=== PATIENT | female | born 1950 | race Caucasian/White ===

== ENCOUNTER 2018-10-11 07:50 | Outpatient (CLI) | payer MEDICARE ==
[2018-10-11 12:45] LABS: Bilirubin Negative (Negative); Blood, Urine Negative (Negative); Clarity CLOUDY (Clear); Glucose, Urine (Dipstick) Negative (Negative); Hemoglobin 13.2 g/dL (12.0-16.0); Leukocyte Large (Negative); Mean Corpuscular HGB CONC 34.3 g/dL (32.0-36.0); Mean Corpuscular Hemoglobin 30.9 pg (27.0-31.0); Mean Corpuscular Volume 90.1 fL (78.0-98.0); Nitrite Negative (Negative); Platelet Count 258 thou/uL (130-400); Protein, Urine (Dipstick) Negative (Neg-Trace); Red Blood Cell (RBC) Count 4.27 mill/uL (4.20-5.40); Specific Gravity, Urine 1.017 (1.002-1.036); Urobilinogen 0.2 mg/dL (0.2-1.0); White Blood Cell (WBC) Count 11.5 thou/uL (4.8-10.8)
[2018-10-11 12:49] LABS: Bacteria/HPF None Seen HPF (None Seen); Hyaline Casts/LPF 0-3 HYALINE CAST LPF (0-3 Hyaline); Pathc Cast-AUWi Flag 0.14 (0-2.49); RBC/HPF 0-3 HPF (0-3); WBC/HPF 21-50 HPF (0-3)
[2018-10-11 12:50] LABS: INR-International Normal Ratio 1.1
[2018-10-11 13:04] LABS: Anion Gap 14 mmol/L (10-20); BUN (Urea Nitrogen) 24 mg/dL (9.8-20.1); Calc. Creatinine Clearance 0 mL/min (70-130); Calcium 9.5 mg/dL (7.8-10.44); Carbon Dioxide 22 mmol/L (23-31); Chloride 107 mmol/L (98-107); Estimated GFR-MDRD 38; Glucose 75 mg/dL (80-115); Potassium 4.4 mmol/L (3.5-5.1); Sodium 139 mmol/L (136-145)
--- NOTE | 2018-10-11 17:10 | EKG ---
Test Reason : Blood Pressure : / mmHG Vent. Rate : 085 BPM Atrial Rate : 085 BPM P-R Int : 134 ms QRS Dur : 088 ms QT Int : 356 ms P-R-T Axes : 047 053 067 degrees QTc Int : 423 ms Normal sinus rhythm Anterior infarct , age undetermined Abnormal ECG No previous ECGs available Confirmed by KHARI SANDERSON, DR. Marc ([id number]) on 10/11/2018 5:10:01 PM Referred By: IERO Confirmed By:DR. Monico LUCIA MD
== END 2018-10-11 07:51 | disposition home or self-care (01) ==
LOC: LABBT 07:50
PROVIDERS: ATTEND Orthopaedic Surgery
DX: Z01.818 Encounter for other preprocedural examination (principal); M17.12 Unilateral primary osteoarthritis, left knee
CPT/HCPCS: 80048; 81001; 85027; 85610; 87081; 93005; 93010

== ENCOUNTER 2018-10-16 09:32 | Outpatient (CLI) | payer MEDICARE | END 2018-10-16 09:33 | disposition home or self-care (01) | LOC: LABBT 09:32 | PROVIDERS: ATTEND Orthopaedic Surgery | DX: Z01.812 Encounter for preprocedural laboratory examination (principal); M17.12 Unilateral primary osteoarthritis, left knee | CPT/HCPCS: 86850; 86900; 86901 ==

== ENCOUNTER 2018-10-22 05:36 | Inpatient (IN) | payer MEDICARE ==
[2018-10-11 09:35] VITALS: BMI 33.6
[2018-10-22] MEDS ORDERED: Sodium Chloride 0.9% 100 ML ONE (05:53)
[2018-10-22] MEDS ORDERED: Tranexamic Acid 1,000 MG/10 ML VIAL ONE ×2 (05:53→09:32)
[2018-10-22] MEDS ORDERED: CEFAZOLIN 2 GM/50 ML BAG ONE (05:53)
[2018-10-22] MEDS ORDERED: Vancomycin HCl 1.5 GM in Sodium Chloride 0.9% 250 ML 300 ML IVPB ONE (06:00)
[2018-10-22] MEDS ORDERED: Midazolam HCl 2 mg/2 ml Vial ONE (06:29)
[2018-10-22] MEDS ORDERED: Lidocaine 1% (PF) 30 ML VIAL ONE (06:29)
[2018-10-22] MEDS ORDERED: Fentanyl 100 MCG/2 ML VIAL ONE ×3 (06:29→09:44)
[2018-10-22] MEDS ORDERED: Bupivacaine PF 0.5% 30 ML VIAL ONE (06:40)
[2018-10-22] MEDS ORDERED: Zolpidem Tartrate 5 MG TAB PO PRN ×2 (07:13→07:25)
[2018-10-22] MEDS ORDERED: Acetaminophen 325 MG TAB PO PRN (07:13)
[2018-10-22] MEDS ORDERED: diphenhydrAMINE 25 MG CAP PO PRN (07:13)
[2018-10-22] MEDS ORDERED: Promethazine HCl 25 MG/ML VIAL IM PRN ×3 (07:13→09:03)
[2018-10-22] MEDS ORDERED: Fentanyl 100 MCG/2 ML VIAL SLOW IVP PRN (07:13)
[2018-10-22] MEDS ORDERED: traMADol HCl 50 MG TAB PO PRN ×3 (07:13→07:25)
[2018-10-22] MEDS ORDERED: Ondansetron PF 4 MG/2 ML Vial IVP PRN ×2 (07:13→07:25)
[2018-10-22] MEDS ORDERED: HYDROcodone/Acetaminophen 10/325 mg Tablet PO PRN ×2 (07:13)
[2018-10-22] MEDS ORDERED: CEFAZOLIN/Water 2 GM/20 ML SYRINGE SLOW IVP SCH (07:15)
[2018-10-22] MEDS ORDERED: Tranexamic Acid 1,000 MG in Sodium Chloride 0.9% 100 ML IVPB SCH (07:15)
[2018-10-22] MEDS ORDERED: SUMAtriptan Succinate 50 MG TAB PO PRN (07:15)
[2018-10-22] MEDS ORDERED: Ropivacaine HCl/PF 250 ML in Premix Bag 1 BAG NERVE BLCK SCH (07:25)
[2018-10-22] MEDS ORDERED: HYDROcodone/Acetaminophen 5/325 mg Tablet PO PRN (07:25)
[2018-10-22] MEDS ORDERED: Dextroamphetamine/Amphetamine [Adderall Xr 30 Mg Capsule] PO SCH (09:00)
[2018-10-22] MEDS ORDERED: Aspirin 81 mg Enteric Coated Tablet PO SCH (09:00)
[2018-10-22] MEDS ORDERED: DEXMETHYLPHENIDATE HCL 20 MG PO SCH (09:00)
[2018-10-22] MEDS ORDERED: Promethazine HCl 25 MG/ML VIAL SLOW IVP PRN (09:03)
[2018-10-22] MEDS ORDERED: Ondansetron HCl/PF 4 MG/2 ML Vial IVP PRN (09:03)
--- NOTE | 2018-10-22 10:51 | OP ---
DATE OF PROCEDURE: 10/22/2018 PREOPERATIVE DIAGNOSIS: Left knee osteoarthrosis. POSTOPERATIVE DIAGNOSIS: Left knee osteoarthrosis. PROCEDURE PERFORMED: Left total knee replacement using [employer] pinless navigation. SHAREPOINT MANAGER: Manolo Carlisle PA-C. BLOOD LOSS: Minimal. COMPLICATIONS: None. ANESTHESIA: She had a preoperative block. She also had a general anesthetic. DISPOSITION: She went to recovery room in stable condition. IMPLANTS: Our implants to the left leg include Triathlon total knee system, femur size 4, cruciate retaining left femur. We used a size 4 primary tibial base plate, 4 x 9 mm CS X3 tibial bearing, and a 27 x 8 X3 symmetric patella. INDICATIONS: This is a 67-year-old female, who has had long-term arthritic pain in the knee. She has had her other knee replaced and has done well with this and at this time, she wished to have her left knee replaced. PROCEDURE IN DETAIL: After all appropriate consent forms were explained and signed, the patient was taken back to the operating room and at this time was given general anesthetic. Once the level of anesthesia was appropriate, a well-padded tourniquet was placed on the left leg, and the leg was then prepped and draped in standard surgical fashion. The limb was exsanguinated and tourniquet taken up to 300 mmHg. Midline incision was made with a 10 blade down through the skin and subcutaneous tissue. Bovie electrocautery was used to coagulate any brisk venous bleeding. A new blade was used to make a medial parapatellar arthrotomy. Small subperiosteal release was performed medially and excess fat pad was removed. The knee was flexed up to gain access to the femur. The femur was navigated and distal femoral resection was made. Epicondylar access was used to align our sizing jig and this was pinned in place. We sized our femur to be a 4. 4:1 cutting block was applied and pinned. Anterior and posterior chamfer cuts were then made. We navigated out our proximal tibia and made our proximal tibial resection. Spreaders were used to remove any posterior osteophytes off the back of the femur as well as remaining meniscal tissue. A long alignment kathy was then used to achieve correct rotation of our tibial baseplate and a size 4 primary was chosen. This was pinned in place. We trialed the polyethylene and a 4 x 9 mm CS X3 tibial bearing polyethylene gave us full extension and good stability throughout range of motion. Two towel clips and a saw were used to cut our patella. Three lug nuts were drilled and a 27 x 8 X3 symmetric patella was trialed which sat nicely in the trochlear groove. We then drilled our femur and punched our tibia. All components were removed. The knee was thoroughly irrigated and dried. Cement was mixed into the cement gun on the back table. Components were then placed. The knee was held out in full extension until the cement had dried. All excess bone cement was removed. Multiple #2 Vicryl stitches as well as a Quill were used to close our extensor mechanism. 0 Quill followed by a running Monoderm was then used to close the skin. Surgicel glue was then used on the skin. Once this had dried, soft tissue dressing was applied to the limb, tourniquet was let down, and the toes pinked up nicely. The patient was then awakened and taken to the recovery room in stable condition. All counts were correct at the end of the case. The patient did receive preoperative IV antibiotics. The patient was injected with Exparel for postoperative pain relief. Job ID: [id number]
[2018-10-22] MEDS: Sodium Chloride 0.9% 1,000 ML IV SCH ×3 (11:00→21:47)
[2018-10-22] MEDS: Metoprolol Tartrate 100 MG TAB PO SCH ×2 (11:03→21:48)
[2018-10-22] MEDS: Cyanocobalamin (Vitamin B-12) 1,000 MCG TAB PO SCH (11:03)
[2018-10-22] MEDS: Aspirin 81 mg Enteric Coated Tablet PO SCH ×2 (11:03→21:48)
[2018-10-22] MEDS: Ubidecarenone 50 MG CAP PO SCH (11:04)
[2018-10-22] MEDS: pyridOXINE 50 MG (B6) TAB PO SCH (11:04)
[2018-10-22] MEDS: Folic Acid 1 MG TAB PO SCH (11:06)
[2018-10-22] MEDS: Fentanyl 100 MCG/2 ML VIAL IV PRN (11:10)
[2018-10-22] MEDS: Topiramate 25 MG TAB PO SCH ×2 (11:14→21:48)
[2018-10-22] MEDS: Hydrochlorothiazide 25 MG TAB PO SCH (11:17)
[2018-10-22] MEDS: DULoxetine 60 MG CAP PO SCH ×2 (11:18→21:48)
[2018-10-22] MEDS: Digoxin 0.125 MG TAB PO SCH (11:18)
[2018-10-22] MEDS ORDERED: Calcium Carbonate 500 MG ChewTAB PO PRN (12:03)
[2018-10-22] MEDS ORDERED: hydrALAZINE 20 MG/ML VIAL SLOW IVP PRN (12:03)
[2018-10-22] MEDS ORDERED: Artificial Tear Sol 15 ML BOT EA EYE PRN (12:03)
[2018-10-22] MEDS ORDERED: Diabetic Tussin 200 MG/10 ML UDCUP PO PRN (12:03)
[2018-10-22] MEDS ORDERED: Sodium Chloride 0.65% Nasal 44 ML BOT EA NARE PRN (12:03)
[2018-10-22] MEDS ORDERED: Cepastat Lozenges 1 LOZ PO PRN (12:03)
[2018-10-22] MEDS ORDERED: Eucerin (Mineral Oil/Petrolatum,White) 30 gm Jar TOP PRN (12:03)
[2018-10-22] MEDS: HYDROcodone/Acetaminophen 5/325 mg Tablet PO PRN ×3 (13:07→21:57)
--- NOTE | 2018-10-22 13:18 | PDOC.PN ---
- Subjective Encounter Start Date: 10/22/18 Encounter Start Time: 12:15 -: old records requested/rev Patient seen and examined. No new complaints. pt is admitted for left TKR currently her pain is controlled denies any chest pain or dyspnea - Objective Resuscitation Status - Order Detail: 10/22/18 12:03 Resuscitation Status Routine Resuscitation Status: FULL: Full Resuscitation Vital Signs & Weight: Vital Signs (12 hours) Temp Pulse Resp BP Pulse Ox 10/22/18 11:55 96 10/22/18 11:18 84 10/22/18 10:30 98.1 F 84 18 139/79 96 Weight Weight 215 lb Additional Labs: old labs reviewed and she had normal CBC, BMP pre op EKG Reviewed by me: Yes (nsr) Phys Exam - Physical Examination Constitutional: NAD HEENT: PERRLA, moist MMs, sclera anicteric Neck: no JVD, supple Respiratory: no wheezing, no rales, no rhonchi, clear to auscultation bilateral Cardiovascular: RRR, no significant murmur, no rub Gastrointestinal: soft, non-tender, no distention, positive bowel sounds Musculoskeletal: no edema, pulses present left knee with dressing, nerve block in place, jonas+ Neurological: non-focal, normal sensation, moves all 4 limbs Lymphatic: no nodes Psychiatric: normal affect, A&O x 3 Skin: no rash, normal turgor Dx/Plan (1) Status post total left knee replacement Code(s): Z96.652 - PRESENCE OF LEFT ARTIFICIAL KNEE JOINT Status: Acute (2) Anxiety and depression Code(s): F41.9 - ANXIETY DISORDER, UNSPECIFIED; F32.9 - MAJOR DEPRESSIVE DISORDER, SINGLE EPISODE, UNSPECIFIED Status: Chronic (3) CKD (chronic kidney disease) stage 3, GFR 30-59 ml/min Code(s): N18.3 - CHRONIC KIDNEY DISEASE, STAGE 3 (MODERATE) Status: Chronic (4) Hypertension Code(s): I10 - ESSENTIAL (PRIMARY) HYPERTENSION Status: Chronic (5) Obesity (BMI 30.0-34.9) Code(s): E66.9 - OBESITY, UNSPECIFIED Status: Chronic (6) Osteoarthritis Code(s): M19.90 - UNSPECIFIED OSTEOARTHRITIS, UNSPECIFIED SITE Status: Chronic - Plan cont current plan of care, plan discussed w/ family, PT/OT * medication reviewed as below * symptomatic treatment * home medication reconciled * code status full code addressed * pepcid for GI prophylaxis. * continue aspirin for DVT prophylaxis per protocol * nerve block as per anesthesia * pain controlled * medically stable for now * discussed with family * will follow . Review of Systems - Review of Systems ENT: negative: Ear Pain, Ear Discharge, Nose Pain, Nose Discharge, Nose Congestion, Mouth Pain, Mouth Swelling, Throat Pain, Throat Swelling, Other Respiratory: negative: Cough, Dry, Shortness of Breath, Hemoptysis, SOB with Excertion, Pleuritic Pain, Sputum, Wheezing Cardiovascular: negative: chest pain, palpitations, orthopnea, paroxysmal nocturnal dyspnea, edema, light headedness, other Gastrointestinal: negative: Nausea, Vomiting, Abdominal Pain, Diarrhea, Constipation, Melena, Hematochezia, Other Genitourinary: negative: Dysuria, Frequency, Incontinence, Hematuria, Retention , Other Musculoskeletal: negative: Neck Pain, Shoulder Pain, Arm Pain, Back Pain, Hand Pain, Leg Pain, Foot Pain, Other - Medications/Allergies Allergies/Adverse Reactions: Allergies Allergy/AdvReac Type Severity Reaction Status Date / Time No Known Allergies Allergy Verified 10/11/18 09:35 Medications: Current Medications Acetaminophen (Tylenol) 650 mg PO Q4H PRN PRN Reason: Headache/Fever or Pain Hydrocodone Bitart/Acetaminophen ([place] 5/325) 1 tab PO Q4H PRN PRN Reason: Mild Pain (1-3) Hydrocodone Bitart/Acetaminophen ([place] 5/325) 2 tab PO Q4H PRN PRN Reason: For Moderate Pain 4-6 Last Admin: 10/22/18 13:07 Dose: 2 tab Artificial Tears (Tears Renewed 15ml Bottle) 2 drop EA EYE PRN PRN PRN Reason: Dry Eyes Aspirin (Ecotrin) 81 mg PO BID [facility] Last Admin: 10/22/18 11:03 Dose: Not Given Calcium Carbonate (Tums) 1,000 mg PO Q4H PRN PRN Reason: Heartburn or Indigestion Coenzyme Q10 (Coenzyme Q10) 400 mg PO DAILY [facility] Last Admin: 10/22/18 11:04 Dose: Not Given Cyanocobalamin (Vitamin B-12) 2,500 mcg PO DAILY [facility] Last Admin: 10/22/18 11:03 Dose: Not Given Digoxin (Lanoxin) 0.125 mg PO DAILY [facility] Last Admin: 10/22/18 11:18 Dose: Not Given Diphenhydramine HCl (Benadryl) 25 mg PO Q6H PRN PRN Reason: Itching Duloxetine HCl (Cymbalta) 60 mg PO BID [facility] Last Admin: 10/22/18 11:18 Dose: Not Given Famotidine (Pepcid) 20 mg PO DAILY [facility] Fentanyl (Sublimaze) 50 mcg IV Q1H PRN PRN Reason: BREAKTHRU PAIN Last Admin: 10/22/18 11:10 Dose: 50 mcg Ferrous Gluconate (Fergon) 324 mg PO BID[facility] Folic Acid (Folvite) 0.5 mg PO DAILY [facility] Last Admin: 10/22/18 11:06 Dose: Not Given Guaifenesin (Robitussin Sf) 200 mg PO Q4H PRN PRN Reason: Cough Hydralazine HCl (Apresoline) 10 mg SLOW IVP Q4H PRN PRN Reason: SBP > 180 and HR < 70 Hydrochlorothiazide (Hydrochlorothiazide) 25 mg PO DAILY [facility] Last Admin: 10/22/18 11:17 Dose: 25 mg Sodium Chloride (Normal Saline 0.9%) 1,000 mls @ 100 mls/hr IV .Q10H [facility] Last Admin: 10/22/18 11:00 Dose: Not Given Vancomycin HCl 1.5 gm/ Sodium (Chloride) 300 mls @ 200 mls/hr IVPB 1800 [facility] Stop: 10/22/18 19:29 Ropivacaine 250 ml/ Device 250 mls @ 10 mls/hr NERVE BLCK INF [facility] Cefazolin Sodium/Dextrose 2 gm (/ Device) 50 mls @ 100 mls/hr IVPB Q8HR [facility] Stop: 10/22/18 22:29 Iron/Minerals/Multivitamins (Theragran M) 1 tab PO DAILY [facility] Ketorolac Tromethamine (Toradol) 15 mg IVP Q6H PRN PRN Reason: Moderate Pain (4-6) Stop: 10/25/18 07:26 Meloxicam (Mobic) 15 mg PO DAILY [facility] Metoprolol Tartrate (Lopressor) 100 mg PO BID [facility] Last Admin: 10/22/18 11:03 Dose: Not Given Mineral Oil/White Petrolatum (Eucerin Cream) 0 gm TOP BIDPRN PRN PRN Reason: Dry Skin Ondansetron HCl (Zofran) 4 mg IVP Q6H PRN PRN Reason: Nausea/Vomiting Dexmethylphenidate Hcl [Focalin Xr] 20 Mg 0 each PO QAM [facility] Dextroamphetamine/Amphetamine [ Adderall Xr 30 Mg Capsule] 0 each PO DAILY [facility] Promethazine HCl (Phenergan) 12.5 mg IM Q4H PRN PRN Reason: Nausea/Vomiting Pyridoxine HCl (Vitamin B 6) 25 mg PO DAILY [facility] Last Admin: 10/22/18 11:04 Dose: Not Given Senna/Docusate Sodium (Senokot S) 2 tab PO BID [facility] Sodium Chloride (Flush - Normal Saline) 10 ml IVF PRN PRN PRN Reason: Saline Flush Sodium Chloride ([place] Nasal [place] 0.65%) 0 ml EA NARE QIDPRN PRN PRN Reason: Nasal Congestion Sumatriptan Succinate (Imitrex) 50 mg PO DAILY PRN PRN Reason: migraines Throat Lozenges (Cepastat Lozenges) 1 marnie PO Q2H PRN PRN Reason: Sore Throat Topiramate (Topamax) 25 mg PO BID [facility] Last Admin: 10/22/18 11:14 Dose: Not Given Tramadol HCl (Ultram) 50 mg PO Q6H PRN PRN Reason: Mild Pain (1-3) Tramadol HCl (Ultram) 100 mg PO Q6H PRN PRN Reason: Moderate Pain 4-6 Zolpidem Tartrate (Ambien) 5 mg PO HSPRN PRN PRN Reason: Insomnia
[2018-10-22] MEDS: CEFAZOLIN 2 GM/50 ML-DEXTROSE 2 GM in Premix Bag 1 BAG IVPB SCH ×2 (15:25→21:48)
[2018-10-22] MEDS ORDERED: Ropivacaine 0.2% HCl/PF (40 MG/20 ML VIAL) ONE (16:26)
[2018-10-22] MEDS ORDERED: Ropivacaine 0.5% HCl/PF (150 MG/30 ML VIAL) ONE (16:26)
[2018-10-22] MEDS ORDERED: Metoprolol Tartrate 5 MG/5 ML VIAL ONE (17:01)
[2018-10-22] MEDS ORDERED: PROPOFOL 200 MG/20 ML VIAL ONE (17:01)
[2018-10-22] MEDS ORDERED: Ondansetron PF 4 MG/2 ML Vial ONE (17:01)
[2018-10-22] MEDS ORDERED: Dexamethasone 20 MG/5 ML VIAL ONE (17:01)
[2018-10-22] MEDS ORDERED: Ketorolac Tromethamine 30 MG/ML VIAL ONE (17:01)
[2018-10-22] MEDS: Ketorolac Tromethamine 30 MG/ML VIAL IVP PRN (17:08)
[2018-10-22] MEDS ORDERED: Vancomycin HCl 1.5 GM in Sodium Chloride 0.9% 250 ML 300 ML IVPB SCH (18:00)
[2018-10-23] MEDS: Ketorolac Tromethamine 30 MG/ML VIAL IVP PRN ×2 (00:17→12:27)
[2018-10-23 05:26] LABS: Hemoglobin 9.6 g/dL (12.0-16.0); Mean Corpuscular HGB CONC 33.7 g/dL (32.0-36.0); Mean Corpuscular Hemoglobin 30.5 pg (27.0-31.0); Mean Corpuscular Volume 90.5 fL (78.0-98.0); Platelet Count 183 thou/uL (130-400); RBC Distribution Width 12.4 % (11.5-14.5); Red Blood Cell (RBC) Count 3.16 mill/uL (4.20-5.40); White Blood Cell (WBC) Count 11.6 thou/uL (4.8-10.8)
[2018-10-23] MEDS: HYDROcodone/Acetaminophen 5/325 mg Tablet PO PRN ×5 (05:46→23:36)
[2018-10-23] MEDS: Ferrous Gluconate 324 MG TAB PO SCH ×2 (08:52→17:24)
[2018-10-23] MEDS: Multivitamin W/ Minerals 1 TAB PO SCH (08:53)
[2018-10-23] MEDS: pyridOXINE 50 MG (B6) TAB PO SCH (08:53)
[2018-10-23] MEDS: Aspirin 81 mg Enteric Coated Tablet PO SCH ×2 (08:53→20:49)
[2018-10-23] MEDS: Senokot S 8.6-50 MG TAB PO SCH ×2 (08:53→20:49)
[2018-10-23] MEDS: Famotidine 20 MG TAB PO SCH (08:54)
[2018-10-23] MEDS: Metoprolol Tartrate 100 MG TAB PO SCH ×2 (08:55→20:49)
[2018-10-23] MEDS: Folic Acid 1 MG TAB PO SCH (08:55)
[2018-10-23] MEDS: DULoxetine 60 MG CAP PO SCH ×2 (08:56→20:48)
[2018-10-23] MEDS: Digoxin 0.125 MG TAB PO SCH (08:56)
[2018-10-23] MEDS: Hydrochlorothiazide 25 MG TAB PO SCH (08:57)
[2018-10-23] MEDS: Ubidecarenone 50 MG CAP PO SCH (09:09)
[2018-10-23] MEDS: Cyanocobalamin (Vitamin B-12) 1,000 MCG TAB PO SCH (09:09)
--- NOTE | 2018-10-23 09:46 | PDOC.PN ---
- Subjective Encounter Start Date: 10/23/18 Encounter Start Time: 07:50 pt is doing well, her pain is controlled, her jonas out Patient seen and examined. No new complaints. No overnight events - Objective Resuscitation Status - Order Detail: 10/22/18 12:03 Resuscitation Status Routine Resuscitation Status: FULL: Full Resuscitation MAR Reviewed: Yes Vital Signs & Weight: Vital Signs (12 hours) Temp Pulse Resp BP Pulse Ox 10/23/18 08:56 89 10/23/18 07:37 94 L 10/23/18 07:17 98.5 F 89 20 105/68 94 L 10/23/18 04:00 98.2 F 85 18 148/86 H 97 10/23/18 00:00 98.3 F 84 18 136/83 96 Weight Weight 215 lb I&O: 10/22/18 10/23/18 10/24/18 06:59 06:59 06:59 Intake Total 4080.5 Output Total 2400 Balance 1680.5 Result Diagrams: 10/23/18 05:03 Phys Exam - Physical Examination Constitutional: NAD HEENT: PERRLA, moist MMs, sclera anicteric Neck: no JVD, supple Respiratory: no wheezing, no rales, no rhonchi Cardiovascular: RRR, no significant murmur, no rub Gastrointestinal: soft, non-tender, no distention, positive bowel sounds Musculoskeletal: no edema, pulses present left knee with dressing, epidural in place Neurological: non-focal, normal sensation, moves all 4 limbs Lymphatic: no nodes Psychiatric: normal affect, A&O x 3 Skin: no rash, normal turgor Dx/Plan (1) Status post total left knee replacement Code(s): Z96.652 - PRESENCE OF LEFT ARTIFICIAL KNEE JOINT Status: Acute (2) Anxiety and depression Code(s): F41.9 - ANXIETY DISORDER, UNSPECIFIED; F32.9 - MAJOR DEPRESSIVE DISORDER, SINGLE EPISODE, UNSPECIFIED Status: Chronic (3) CKD (chronic kidney disease) stage 3, GFR 30-59 ml/min Code(s): N18.3 - CHRONIC KIDNEY DISEASE, STAGE 3 (MODERATE) Status: Chronic (4) Hypertension Code(s): I10 - ESSENTIAL (PRIMARY) HYPERTENSION Status: Chronic (5) Obesity (BMI 30.0-34.9) Code(s): E66.9 - OBESITY, UNSPECIFIED Status: Chronic (6) Osteoarthritis Code(s): M19.90 - UNSPECIFIED OSTEOARTHRITIS, UNSPECIFIED SITE Status: Chronic (7) Anemia, normocytic normochromic Code(s): D64.9 - ANEMIA, UNSPECIFIED Status: Acute - Plan cont current plan of care, plan discussed w/ family, PT/OT * medication reviewed as below * symptomatic treatment * pepcid for GI prophylaxis. * continue aspirin for DVT prophylaxis per protocol * nerve block as per anesthesia * pain controlled * medically stable for now * will follow. * discharge per primary team Review of Systems - Review of Systems ENT: negative: Ear Pain, Ear Discharge, Nose Pain, Nose Discharge, Nose Congestion, Mouth Pain, Mouth Swelling, Throat Pain, Throat Swelling, Other Respiratory: negative: Cough, Dry, Shortness of Breath, Hemoptysis, SOB with Excertion, Pleuritic Pain, Sputum, Wheezing Cardiovascular: negative: chest pain, palpitations, orthopnea, paroxysmal nocturnal dyspnea, edema, light headedness, other Gastrointestinal: negative: Nausea, Vomiting, Abdominal Pain, Diarrhea, Constipation, Melena, Hematochezia, Other Genitourinary: negative: Dysuria, Frequency, Incontinence, Hematuria, Retention , Other Musculoskeletal: negative: Neck Pain, Shoulder Pain, Arm Pain, Back Pain, Hand Pain, Leg Pain, Foot Pain, Other Skin: negative: Rash, Lesions, Ellis, Bruising, Other - Medications/Allergies Allergies/Adverse Reactions: Allergies Allergy/AdvReac Type Severity Reaction Status Date / Time No Known Allergies Allergy Verified 10/11/18 09:35 Medications: Current Medications Acetaminophen (Tylenol) 650 mg PO Q4H PRN PRN Reason: Headache/Fever or Pain Hydrocodone Bitart/Acetaminophen ([place] 5/325) 1 tab PO Q4H PRN PRN Reason: Mild Pain (1-3) Hydrocodone Bitart/Acetaminophen ([place] 5/325) 2 tab PO Q4H PRN PRN Reason: For Moderate Pain 4-6 Last Admin: 10/23/18 05:46 Dose: 2 tab Artificial Tears (Tears Renewed 15ml Bottle) 2 drop EA EYE PRN PRN PRN Reason: Dry Eyes Aspirin (Ecotrin) 81 mg PO BID [facility] Last Admin: 10/23/18 08:53 Dose: 81 mg Calcium Carbonate (Tums) 1,000 mg PO Q4H PRN PRN Reason: Heartburn or Indigestion Coenzyme Q10 (Coenzyme Q10) 400 mg PO DAILY [facility] Last Admin: 10/23/18 09:09 Dose: Not Given Cyanocobalamin (Vitamin B-12) 2,500 mcg PO DAILY [facility] Last Admin: 10/23/18 09:09 Dose: 2,500 mcg Digoxin (Lanoxin) 0.125 mg PO DAILY [facility] Last Admin: 10/23/18 08:56 Dose: 0.125 mg Diphenhydramine HCl (Benadryl) 25 mg PO Q6H PRN PRN Reason: Itching Duloxetine HCl (Cymbalta) 60 mg PO BID [facility] Last Admin: 10/23/18 08:56 Dose: 60 mg Famotidine (Pepcid) 20 mg PO DAILY [facility] Last Admin: 10/23/18 08:54 Dose: 20 mg Fentanyl (Sublimaze) 50 mcg IV Q1H PRN PRN Reason: BREAKTHRU PAIN Last Admin: 10/22/18 11:10 Dose: 50 mcg Ferrous Gluconate (Fergon) 324 mg PO BID[facility] Last Admin: 10/23/18 08:52 Dose: 324 mg Folic Acid (Folvite) 0.5 mg PO DAILY [facility] Last Admin: 10/23/18 08:55 Dose: 0.5 mg Guaifenesin (Robitussin Sf) 200 mg PO Q4H PRN PRN Reason: Cough Hydralazine HCl (Apresoline) 10 mg SLOW IVP Q4H PRN PRN Reason: SBP > 180 and HR < 70 Hydrochlorothiazide (Hydrochlorothiazide) 25 mg PO DAILY [facility] Last Admin: 10/23/18 08:57 Dose: Not Given Sodium Chloride (Normal Saline 0.9%) 1,000 mls @ 100 mls/hr IV .Q10H [facility] Last Admin: 10/22/18 21:47 Dose: 1,000 mls Ropivacaine 250 ml/ Device 250 mls @ 10 mls/hr NERVE BLCK INF [facility] Iron/Minerals/Multivitamins (Theragran M) 1 tab PO DAILY [facility] Last Admin: 10/23/18 08:53 Dose: 1 tab Ketorolac Tromethamine (Toradol) 15 mg IVP Q6H PRN PRN Reason: Moderate Pain (4-6) Stop: 10/25/18 07:26 Last Admin: 10/23/18 00:17 Dose: 15 mg Meloxicam (Mobic) 15 mg PO DAILY [facility] Metoprolol Tartrate (Lopressor) 100 mg PO BID [facility] Last Admin: 10/23/18 08:55 Dose: 100 mg Mineral Oil/White Petrolatum (Eucerin Cream) 0 gm TOP BIDPRN PRN PRN Reason: Dry Skin Ondansetron HCl (Zofran) 4 mg IVP Q6H PRN PRN Reason: Nausea/Vomiting Dexmethylphenidate Hcl [Focalin Xr] 20 Mg 0 each PO QAM [facility] Dextroamphetamine/Amphetamine [ Adderall Xr 30 Mg Capsule] 0 each PO DAILY [facility] Promethazine HCl (Phenergan) 12.5 mg IM Q4H PRN PRN Reason: Nausea/Vomiting Pyridoxine HCl (Vitamin B 6) 25 mg PO DAILY [facility] Last Admin: 10/23/18 08:53 Dose: 25 mg Senna/Docusate Sodium (Senokot S) 2 tab PO BID [facility] Last Admin: 10/23/18 08:53 Dose: 2 tab Sodium Chloride (Flush - Normal Saline) 10 ml IVF PRN PRN PRN Reason: Saline Flush Sodium Chloride ([place] Nasal [place] 0.65%) 0 ml EA NARE QIDPRN PRN PRN Reason: Nasal Congestion Sumatriptan Succinate (Imitrex) 50 mg PO DAILY PRN PRN Reason: migraines Throat Lozenges (Cepastat Lozenges) 1 marnie PO Q2H PRN PRN Reason: Sore Throat Topiramate (Topamax) 25 mg PO BID [facility] Last Admin: 10/22/18 21:48 Dose: 25 mg Tramadol HCl (Ultram) 50 mg PO Q6H PRN PRN Reason: Mild Pain (1-3) Tramadol HCl (Ultram) 100 mg PO Q6H PRN PRN Reason: Moderate Pain 4-6 Zolpidem Tartrate (Ambien) 5 mg PO HSPRN PRN PRN Reason: Insomnia
[2018-10-23] MEDS: Fentanyl 100 MCG/2 ML VIAL IV PRN (12:22)
[2018-10-23] MEDS: Sodium Chloride 0.9% 1,000 ML IV SCH ×2 (14:16→22:22)
[2018-10-23] MEDS: Topiramate 25 MG TAB PO SCH ×2 (14:23→20:48)
[2018-10-24] MEDS: HYDROcodone/Acetaminophen 5/325 mg Tablet PO PRN ×3 (04:35→12:21)
[2018-10-24 05:09] LABS: Hemoglobin 9.9 g/dL (12.0-16.0); Mean Corpuscular HGB CONC 34.3 g/dL (32.0-36.0); Mean Corpuscular Hemoglobin 31.2 pg (27.0-31.0); Platelet Count 208 thou/uL (130-400); RBC Distribution Width 12.6 % (11.5-14.5); Red Blood Cell (RBC) Count 3.17 mill/uL (4.20-5.40)
[2018-10-24] MEDS: Ubidecarenone 50 MG CAP PO SCH (08:26)
[2018-10-24] MEDS: Hydrochlorothiazide 25 MG TAB PO SCH (08:26)
[2018-10-24] MEDS: Digoxin 0.125 MG TAB PO SCH (08:28)
[2018-10-24] MEDS: DULoxetine 60 MG CAP PO SCH (08:28)
[2018-10-24] MEDS: Senokot S 8.6-50 MG TAB PO SCH (08:29)
[2018-10-24] MEDS: Aspirin 81 mg Enteric Coated Tablet PO SCH ×2 (08:29→08:32)
[2018-10-24] MEDS: Folic Acid 1 MG TAB PO SCH (08:30)
[2018-10-24] MEDS: Cyanocobalamin (Vitamin B-12) 1,000 MCG TAB PO SCH (08:30)
[2018-10-24] MEDS: Multivitamin W/ Minerals 1 TAB PO SCH (08:32)
[2018-10-24] MEDS: Metoprolol Tartrate 100 MG TAB PO SCH (08:32)
[2018-10-24] MEDS: Ferrous Gluconate 324 MG TAB PO SCH (08:32)
[2018-10-24] MEDS: pyridOXINE 50 MG (B6) TAB PO SCH (08:33)
[2018-10-24] MEDS: Famotidine 20 MG TAB PO SCH (08:37)
[2018-10-24] MEDS: Sodium Chloride 0.9% 1,000 ML IV SCH (11:13)
--- NOTE | 2018-10-24 11:30 | PRG ---
DATE OF SERVICE: 10/24/2018 DISCHARGE SUMMARY/PROGRESS NOTE/TRANSFER OF CARE NOTE PRIMARY CARE PHYSICIAN: Dr. Samra Hernandez. DISCHARGE DISPOSITION: Home. PRIMARY DISCHARGE DIAGNOSIS: Status post left total knee replacement. SECONDARY DISCHARGE DIAGNOSES: Anemia, normocytic normochromic; anxiety; depression; chronic kidney disease, stage 3; hypertension; obesity with body mass index of 33; osteoarthritis. PRIMARY PROCEDURE/OPERATION: Left total knee replacement by Dr. Harrington. RADIOLOGICAL INVESTIGATION: None. SIGNIFICANT LABORATORY DATA: WBC 10.0, hemoglobin 9.9, platelet 208. DISCHARGE MEDICATIONS: 1. Aspirin 81 mg p.o. b.i.d. for DVT prophylaxis. 2. [place] 5 one or two tablets q.4 hourly p.r.n. for pain. 3. Zolmitriptan 2.5 mg p.o. daily p.r.n. 4. Coenzyme Q10 100 mg four tablet daily. 5. Topamax 25 mg b.i.d. 6. Pyridoxine 25 mg daily. 7. Metoprolol 100 mg twice daily. 8. Mobic 15 mg p.o. daily p.r.n. 9. Hydrochlorothiazide 25 mg daily. 10. Folic acid 0.4 mg daily. 11. Cymbalta 60 mg b.i.d. 12. Digoxin 125 mcg p.o. daily. 13. Adderall 30 mg p.o. daily. 14. Dexmethylphenidate 20 mg p.o. daily. 15. Vitamin B12 2500 mcg p.o. daily. CONTRAINDICATION: None. CODE STATUS: Full code. INPATIENT GARDENING SUPERVISOR: Dr. Harrington was primary. [facility] Team was consulted for medical comanagement. TEST RESULTS PENDING ON DISCHARGE: None. ALLERGIES: NO KNOWN DRUG ALLERGIES. DISCHARGE PLAN: Posthospital, the patient has appointment with Dr. Harrington on October 30, 2018 at 2:15 p.m. The patient will make appointment with primary care physician in 1 or 2 weeks. HOSPITAL COURSE: This is a 67-year-old female who has osteoarthritis and she was having more problem with the left knee osteoarthritis. The patient has been tried all conservative treatments as an outpatient basis without any success and that was affecting her quality of life, that is why the patient was admitted to the hospital electively for left total knee replacement, which was done on October 22, 2018 without any complication. Postoperatively at [facility], the patient was evaluated by Sound Team for medical comanagement. The patient's all medical problems remained stable. While in hospital, she was given aspirin for DVT prophylaxis. She had no block for pain control. Her pain was controlled with pain medication. She did well with PT and OT as per [facility] protocol treatment. Today, the patient is planned for discharge by primary team. The patient is seen and examined at bedside today. REVIEW OF SYSTEMS: All review of systems reviewed with her and negative. PHYSICAL EXAMINATION: VITAL SIGNS: Currently, temperature 98.3, pulse 100, respiratory rate 20, saturation 96% on room air, blood pressure 115/75, weight 215 pounds. GENERAL: The patient is currently alert, awake, in no obvious acute distress. HEENT: Head; normocephalic, atraumatic. Eyes; pupils round, reactive to light. Extraocular muscle intact. ENT; oropharynx within normal limits. Moist mucous membranes. No oral lesion. No pharyngeal erythema. No exudate. NECK: Supple. No JVD. No thyromegaly. No carotid bruit. LUNGS: Clear to auscultation without any rhonchi or rales. CARDIAC: S1, S2. Regular without any murmur. ABDOMEN: Soft and benign without any tenderness. EXTREMITIES: No edema. NEUROLOGICAL: Nonfocal examination. Plan of care also discussed with the patient's . Today, we will sign off. Job ID: [id number]
[2018-10-24 11:36] VITALS: BP 144/86; TEMP 98.4
[2018-10-24] MEDS: Topiramate 25 MG TAB PO SCH (13:07)
[2018-10-25] MEDS ORDERED: Meloxicam 15 MG TAB PO SCH (09:00)
== END 2018-10-24 13:15 | disposition home or self-care (01) | DRG 470 ==
LOC: SDC 05:36 → SJJU 10:28
PROVIDERS: ADMIT Orthopaedic Surgery; ATTEND Orthopaedic Surgery
PROC: 0SRD0J9 Replacement of Left Knee Joint with Synthetic Substitute, Cemented, Open Approach (ICD-10-PCS; principal; 2018-10-22)
DX: M17.12 Unilateral primary osteoarthritis, left knee (principal); D64.9 Anemia, unspecified; F41.9 Anxiety disorder, unspecified; F32.9 Major depressive disorder, single episode, unspecified; N18.3 Chronic kidney disease, stage 3 (moderate); I12.9 Hypertensive chronic kidney disease with stage 1 through stage 4 chronic kidney disease, or unspecified chronic kidney disease; E66.9 Obesity, unspecified; Z68.33 Body mass index [BMI] 33.0-33.9, adult
CPT/HCPCS: 36415; 85027; C1713; C1776; J1100; J1885; J2001; J2250; J2405; J2704; J2795; J3010; J3370; J7050; S0020